=== PATIENT | male | born 1965 | race Caucasian/White ===

== ENCOUNTER 2018-03-08 16:16 | Emergency (ER) | payer BC, OTHER ==
[2018-03-08] MEDS ORDERED: LIDOCAINE 2% 10 ML MDV SUBQ STA (16:52)
--- NOTE | 2018-03-08 16:52 | ED Physician Documentation ---
PD HPI UPPER EXT INJURY - Stated complaint Stated Complaint: RT HAND WOUND - Chief complaint Chief Complaint: Laceration - History obtained from History obtained from: Patient - History of Present Illness Location: Right, Hand Type of injury: Laceration (with knife, lac to index finger base dorsally.) Timing - onset: Today Timing - details: Abrupt onset, Still present Worsened by: Moving, Palpating Associated symptoms: No: Weakness, Numbness Similar symptoms before: Has not had sx before Recently seen: Not recently seen Review of Systems Skin: reports: Laceration (s) Neurologic: denies: Focal weakness, Numbness PD PAST MEDICAL HISTORY - Past Medical History Musculoskeletal: None - Present Medications Home Medications: Ambulatory Orders Medication Instructions Recorded Confirmed Dolutegravir Sodium [Tivicay] 25 mg PO 03/08/18 Emtricitab/Rilpiviri/Tenof Ala 1 each PO 03/08/18 [Odefsey Tablet] Emtricitabine/Tenofov Alafenam 1 each PO 03/08/18 [Descovy 200-25 mg Tablet] Lamotrigine [Lamotrigine ER] 25 mg PO 03/08/18 Venlafaxine [Effexor] 75 mg PO BID 03/08/18 03/08/18 traZODone [Desyrel] 50 mg PO ONCE 03/08/18 03/08/18 - Allergies Allergies/Adverse Reactions: Allergies Allergy/AdvReac Type Severity Reaction Status Date / Time No Known Drug Allergies Allergy Verified 03/08/18 16:22 PD ED PE NORMAL - Vitals Vital signs reviewed: Yes - General General: Alert and oriented X 3, No acute distress, Well developed/nourished - Derm Derm: Normal color, Warm and dry - Extremities Extremities: Other (right index finger with dorsal laceration at proximal MCP area. Opens wiht finger flexion. No deep structures cut and no FB. ) - Neuro Neuro: No motor deficit, No sensory deficit Results - Vitals Vitals: Oxygen O2 Source Room air Procedures - Laceration (location) right index finger Length in cm: 1.5 Wound type: Linear, Into subcut fat, Clean Neurovascular status: Sensory intact, Motor intact, Vascular intact Tendon involvement: Tendon intact Anesthesia: Lidocaine 2% Wound Preparation: Irrigated copiously NS Skin layer closure: Nylon, Running, Size #-0 - enter number (4) Other: Patient tolerated well, No complications, Neurovascular intact, Dressing applied, Tetanus UTD Complexity: Simple PD MEDICAL DECISION MAKING - ED course Complexity details: considered differential (lac is in location that will open readily with use. Discussed and opted with sutures. ), d/w patient - Sepsis Event Vital Signs: Oxygen O2 Source Room air Departure - Departure Disposition: 01 Home, Self Care Clinical Impression: Laceration of right hand Qualifiers: Encounter type: initial encounter Foreign body presence: without foreign body Qualified Code(s): S61.411A - Laceration without foreign body of right hand, initial encounter Condition: Stable Record reviewed to determine appropriate education?: Yes Instructions: ED Laceration Hand Comments: It is okay to wash and shower. Clean off the wound twice a day with soap and water, or peroxide and water. Apply some antibiotic ointment to it to keep it moist. Also to watch for signs of infection such as purulence, redness or increasing pain. Return to your primary care or the ER at the specified time for suture removal. Suture removal 8-10 days. It is okay to be using her hands. Discharge Date/Time: 03/08/18 17:59
[2018-03-08 18:00] VITALS: BP 131/75
== END 2018-03-08 17:59 | disposition home or self-care (01) ==
LOC: ED 16:16
DX: S61.210A Laceration without foreign body of right index finger without damage to nail, initial encounter (principal); W26.0XXA Contact with knife, initial encounter
CPT/HCPCS: 12001; 99283

== ENCOUNTER 2018-12-05 11:20 | Outpatient (CLI) | payer OTHER | END 2018-12-05 11:21 | disposition home or self-care (01) | LOC: LAB 11:20 | PROVIDERS: ATTEND Internal Medicine Gastroenterology | DX: Z53.9 Procedure and treatment not carried out, unspecified reason (principal) ==

== ENCOUNTER 2018-12-05 11:36 | Outpatient (CLI) | payer OTHER ==
[2018-12-05 11:48] LABS: BASOPHILS % (AUTO) 0.8 %; EOSINOPHILS # (AUTO) 0.1 10^3/uL (0.0-0.7); EOSINOPHILS % (AUTO) 2.5 %; HGB - HEMOGLOBIN 14.5 g/dL (14.0-18.0); LYMPHOCYTES # (AUTO) 1.6 10^3/uL (1.5-3.5); LYMPHOCYTES % (AUTO) 35.6 %; MEAN CORPUSCULAR HEMOGLOBIN 31.7 pg (27.0-31.0); MEAN CORPUSCULAR HGB CONC 34.7 g/dL (32.0-36.0); MEAN CORPUSCULAR VOLUME 91.4 fL (80.0-94.0); MEAN PLATELET VOLUME 6.7 fL (7.4-11.4); MONOCYTES # (AUTO) 0.3 10^3/uL (0.0-1.0); MONOCYTES % (AUTO) 5.8 %; NEUTROPHILS # (AUTO) 2.4 10^3/uL (1.5-6.6); NEUTROPHILS % (AUTO) 55.3 %; PLT - PLATELET COUNT 236 10^3/uL (130-450); RED BLOOD COUNT 4.59 10^6/uL (4.70-6.10); RED CELL DISTRIBUTION WIDTH 13.3 % (12.0-15.0); WHITE BLOOD COUNT 4.4 x10^3/uL (4.8-10.8)
[2018-12-05 11:57] LABS: ALBUMIN/GLOBULIN RATIO 1.3 (1.0-2.2); BILIRUBIN,TOTAL 1.1 mg/dL (0.2-1.0); CREATININE 0.9 mg/dL (0.6-1.2); TOTAL PROTEIN 7.1 g/dL (6.7-8.2)
== END 2018-12-05 23:59 | disposition home or self-care (01) ==
LOC: LAB.R 11:36
PROVIDERS: ATTEND Internal Medicine Gastroenterology
DX: K62.5 Hemorrhage of anus and rectum (principal); B20 Human immunodeficiency virus [HIV] disease
CPT/HCPCS: 36415; 80053; 85025

== ENCOUNTER 2018-12-17 09:59 | Day surgery (SDC) | payer OTHER ==
[2018-12-17] MEDS ORDERED: LACTATED RINGERS 1,000 ML IV ONE (10:25)
[2018-12-17] MEDS ORDERED: MIDAZOLAM 2 MG/2 ML VIAL IVP ONE (12:29)
[2018-12-17] MEDS ORDERED: fentaNYL 250 MCG/5 ML VIAL IVP ONE (12:29)
[2018-12-17 15:48] VITALS: BP 113/57
== END 2018-12-17 10:00 | disposition home or self-care (01) ==
LOC: SDS 09:59
PROVIDERS: ATTEND Internal Medicine Gastroenterology
PROC: 0DJD8ZZ Inspection of Lower Intestinal Tract, Via Natural or Artificial Opening Endoscopic (ICD-10-PCS; principal; 2018-12-17 11:45)
DX: K57.31 Diverticulosis of large intestine without perforation or abscess with bleeding (principal); K64.8 Other hemorrhoids; K42.9 Umbilical hernia without obstruction or gangrene; B20 Human immunodeficiency virus [HIV] disease; E66.9 Obesity, unspecified; Z68.34 Body mass index [BMI] 34.0-34.9, adult; E78.5 Hyperlipidemia, unspecified; F34.1 Dysthymic disorder
CPT/HCPCS: 45378; J3010; J7120

== ENCOUNTER 2020-07-03 10:36 | Outpatient (CLI) | payer OTHER | END 2020-07-03 10:37 | disposition home or self-care (01) | LOC: COV 10:36 | PROVIDERS: ATTEND Family Medicine | DX: Z20.828 Contact with and (suspected) exposure to other viral communicable diseases (principal) ==

== ENCOUNTER 2020-10-04 13:06 | Outpatient (CLI) | payer OTHER | END 2020-10-04 13:07 | disposition home or self-care (01) | LOC: COV 13:06 | PROVIDERS: ATTEND Family Medicine | DX: Z20.822 Contact with and (suspected) exposure to COVID-19 (principal) ==

== ENCOUNTER 2020-12-15 10:08 | Outpatient (CLI) | payer OTHER ==
[2020-12-15 10:55] VITALS: BP 137/80
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
== END 2020-12-15 10:09 | disposition home or self-care (01) ==
LOC: SC 10:08
PROVIDERS: ATTEND Nurse Practitioner Family
DX: G47.10 Hypersomnia, unspecified (principal); R51.9 Headache, unspecified; G47.8 Other sleep disorders; R41.89 Other symptoms and signs involving cognitive functions and awareness; R06.83 Snoring; Z72.0 Tobacco use; E66.9 Obesity, unspecified; Z68.34 Body mass index [BMI] 34.0-34.9, adult
CPT/HCPCS: 99203; 99212

== ENCOUNTER 2020-12-22 08:42 | Outpatient (CLI) | payer OTHER | END 2020-12-22 08:43 | disposition home or self-care (01) | LOC: SC 08:42 | PROVIDERS: ATTEND Nurse Practitioner Family | DX: G47.33 Obstructive sleep apnea (adult) (pediatric) (principal); R09.02 Hypoxemia; E66.3 Overweight; Z68.34 Body mass index [BMI] 34.0-34.9, adult | CPT/HCPCS: 95806 ==

== ENCOUNTER 2021-01-05 09:01 | Outpatient (CLI) | payer OTHER ==
--- NOTE | 2021-01-05 09:29 | SLEEP CARE CONSULTATION ---
Information from patient questionnaire entered by Eugenie Bolden. I have reviewed and concur with the information entered by Eugenie Bolden. This document represents the service I personally performed and the decisions made by , Ivanna Chi ARNP. History of Present Illness Service Date and Time: 01/05/2021 09 Initial [place] Sleepiness Scale score: 14 (in 2020) Current [place] Sleepiness Scale score: 17 Additional HPI information: DMITRIY CASAREZ returns for follow up and results of the recently performed home sleep study. I explained the pathophysiology behind obstructive sleep apnea. We then spent quite a bit of time discussing different treatment options. For mild obstructive sleep apnea, surgery and oral appliance are alternatives to nasal CPAP therapy but in moderate or severe cases, nasal CPAP is the most effective and reliable treatment. Because apnea is primarily in supine position, then positional management therapy could be effective. Discussed positioning on side with pillows to prevent supine sleep. I reviewed the impact of weight changes on sleep apnea and strongly recommended losing weight. After some discussion, the patient opted to go with the nasal CPAP therapy. Nasal autoCPAP set at 4-15 cmH20 will be ordered with rationale explained. A manual titration study will be ordered if unable to find optimal pressure with office adjustments. I explained how CPAP machine works with sample devices [employer] A/S Dreamstation and ResCol[employer]ri IO [id number] and what to expect when using the machine. Using CPAP every night in order to get used to it was emphasized. Patient advised to put CPAP mask on before getting into bed so as not to fall asleep without CPAP. To assist acclimation to CPAP use, it could also be used for a short time during day while reading or watching TV. The patient was instructed to call the CPAP supplier to discuss any mechanical problem that may occur. If the mask given is uncomfortable or is difficult to keep on through the night even with adjustment, contact the CPAP supplier as many will replace with another mask style if notified before 30 days. If snoring or perceives is not getting enough air or too much air from the machine, notify this office. A[facility] patient education PAP tips reviewed and given to patient. Patient counseled not drink alcohol less than 4 hours before bedtime as it can increase snoring and apnea. Patient was cautioned about risks of drowsy driving until sleepiness symptoms resolve. Sleep Study - Results Type of Sleep Study: Home sleep study Prior sleep studies: Yes Polysomnography/Home Sleep Study results: Physician Impression: The quality of the study is good. The length of the study is adequate (> 240 minutes). Please also see the tabulated and graphic data. 1. Obstructive Sleep Apnea-Hypopnea (ICD-10 G47.33), mild, with an AHI of 13.5 /hr and ginger SaO2 of 84%. During the study, the patient had 56 apneas (56 obstructive, 0 central, 0 mixed) and 44 hypopneas. The longest episode lasted 98.0 seconds. The respiratory events occurred more frequently during supine sleep (supine AHI was 57.3 and non-supine, 11.88). 2. Hypoxemia (ICD-10 R09.02), mild, with the lowest oxygen saturation of 84 % and 32.3 minutes with SaO2 under 90%. Baseline oxygen saturation was normal (Average oxygen saturation was 92%) Allergies and Home Medications Home medication list reviewed: Yes (no new meds) Review of Systems Review of systems same as previous: Yes (no changes) Physical Exam Heart Rate: 77 O2 Saturation: 97 Height: 5 ft 11 in Weight: 253 lb Body Mass Index: 35.2 BMI Classification: Obese Impression and Plan 1. Obstructive Sleep Apnea-Hypopnea Syndrome, mild, with lowest oxygen saturation of 84%. Obviously this is the cause of the patients symptoms of unrefreshed sleep, and excessive daytime sleepiness. Positive pressure therapy could benefit anxiety, depression and mood disorder (PTSD). He is in severe apnea range supine and mild non-supine. As mentioned above, the patient will be started on nasal autoCPAP therapy with pressure set at 4-15 cmH2O. A manual titration study will be completed if unable to find optimal treatment pressure with office adjustments. Compliance guidelines also reviewed. A copy of compliance guidelines will be given for reference at check out. Because the apnea is more severe supine, I instructed to avoid sleeping supine using pillow positioning until able to start CPAP use. 2. Hypoxemia, mild, with the lowest oxygen saturation of 84 % and 32.3 minutes with SaO2 under 90%. Baseline oxygen saturation was normal with an average oxygen saturation of 92%. * Nasal auto CPAP therapy, pressure at 4-15 cm H2O. * Attempt to lose weight. * Avoid alcohol consumption near bedtime. * Avoid supine sleep until using CPAP. * The patient is again cautioned about driving until sleepiness completely resolves. * Return one month after CPAP obtained. I will assess response to therapy and compliance at that time. Counseling Topics: Sleeping position, Weight loss health impact Visit Type: In Office Time Spent with Patient (minutes): 20 Provider Statement: I spent 100% of the Face to Face Visit with the patient with greater than 50% spent counseling the patient and coordination of care.
== END 2021-01-05 09:02 | disposition home or self-care (01) ==
LOC: SC 09:01
PROVIDERS: ATTEND Nurse Practitioner Family
DX: G47.33 Obstructive sleep apnea (adult) (pediatric) (principal); E66.9 Obesity, unspecified; Z68.35 Body mass index [BMI] 35.0-35.9, adult
CPT/HCPCS: 99212; 99213

== ENCOUNTER 2021-05-04 08:16 | Outpatient (CLI) | payer OTHER ==
--- NOTE | 2021-05-04 08:53 | SLEEP CARE CONSULTATION ---
Information from patient questionnaire entered by Eugenie Bolden. I have reviewed and concur with the information entered by Eugenie Bolden. This document represents the service I personally performed and the decisions made by , Ivanna Chi ARNP. History of Present Illness Service Date and Time: 05/04/2021 0816 Previous diagnosis: Mild, Obstructive Sleep Apnea-Hypopnea Syndrome AHI: 13.5 (in 2020) Reason for follow up: first compliance Equipment type: CPAP Equipment obtained from: [employer] (got initial supplies) Mask style: Full face Backup mask available: No Last cushion change: yesterday Prior sleep studies: Yes Year and Where: 2020 - [facility] Type of Sleep Study: Home sleep study HPI additional information: DMITRIY CASAREZ was diagnosed to have mild, AHI 13.5, obstructive sleep apnea- hypopnea syndrome and returned today for CPAP therapy first compliance follow- up. CPAP Compliance Data - Data Reviewed with Patient Average duration of nightly device use: 7 hr 17 min Compliance rate %: 90 (initial 30 days)(83% for 90 days) Current pressure setting (cmH2O): 4-15 (median 6.2, avg 9.4, max 10.6) Average residual AHI: 3.4 Central apnea: 2.0 Obstructive apnea: 0.9 Subjective Missed days of use due to: reports: mask issues Patient concerns: reports: air blowing in eyes, mask leak noise, condensation in mask/hose (couple times). denies: aerophagia, mask discomfort, nasal congestion, dry mouth, nose, throat, epistaxis, other Observed to snore while using device: No Current pressure setting perceived as: comfortable On therapy, patient: reports: sleeping better, awakening more refreshed, being more awake and alert during the day, more rested overall. denies: drowsiness while driving Initial [place] Sleepiness Scale score: 14 (in 2020) Current [place] Sleepiness Scale score: 9 Allergies and Home Medications Home medication list reviewed: Yes (no changes) Review of Systems Review of systems same as previous: Yes (no changes) Physical Exam Heart Rate: 86 O2 Saturation: 97 Height: 5 ft 11 in Weight: 254 lb Body Mass Index: 35.4 BMI Classification: Obese Impression and Plan 1. Obstructive Sleep Apnea-Hypopnea Syndrome, mild, with good treatment compliance and good apnea control. On CPAP therapy, the patient has better sleep quality and is more rested overall. The patients pressure will be changed to autoCPAP 8-10 cmH20 to reflect the pressures used. Patient advised to contact me if pressure change is uncomfortable so that it can be adjusted. Goals for apnea control discussed. Patient started with a nasal cushion mask but then got a full face mask because he was sleeping with his mouth open and getting a dry mouth. He likes the full face mask better but when he turns on his sides he gets air leaking into his eyes and mask leak noises. I advised patient to try the ResMed F 30i mask to see if this is more comfortable and has less leaking when he is on his side. Patient voiced understanding. Mask leaks can be reduced by washing mask daily and changing mask cushions more frequently to improve mask seal and comfort. Additionally, mask leaks predominately from when patient sleeps on their side can be reduced by using a CPAP pillow. A CPAP pillow sample was shown. This and other styes can be purchased online. Patient's apnea severity and rationale for treatment to reduce apnea, improve sleep quality and reduce cardiovascular and cerebrovascular events was reviewed. I also reviewed the benefit of consistent device use of CPAP for depression, anxiety and mood disorder. 2. Obesity, unspecified. Patient currently at a BMI of 35.4. Obesity increases the risk of apnea, CPAP pressure requirements and overall health risks especially cardiovascular and diabetes. Thus patient is advised to lose weight. The patient would like to reduce to 50 pounds. The patient's CPAP pressure range should accommodate some weight loss. Symptoms to report for additional pressure adjustment discussed. * Try Resmed F30i full face mask and CPAP pillow to reduce air leaks * Change auto CPAP pressure to 8-10 cmH2O * Notify me if snoring with mask or feeling that the pressure is too much or too little * Attempt to lose weight * Call this office if any problems using CPAP * Return for follow up in 1-2 months, or sooner if concerns arise * Counseling Topics: Spare mask, Weight loss health impact Visit Type: In Office Time Spent with Patient (minutes): 26 Provider Statement: I spent 100% of the Face to Face Visit with the patient with greater than 50% spent counseling the patient and coordination of care.
== END 2021-05-04 08:17 | disposition home or self-care (01) ==
LOC: SC 08:16
PROVIDERS: ATTEND Nurse Practitioner Family
DX: G47.33 Obstructive sleep apnea (adult) (pediatric) (principal); E66.9 Obesity, unspecified; Z68.35 Body mass index [BMI] 35.0-35.9, adult
CPT/HCPCS: 99212; 99213

== ENCOUNTER 2021-08-31 09:09 | Outpatient (CLI) | payer OTHER | END 2021-08-31 09:10 | disposition home or self-care (01) | LOC: LAB.S 09:09 | PROVIDERS: ATTEND Internal Medicine | DX: Z21 Asymptomatic human immunodeficiency virus [HIV] infection status (principal) | CPT/HCPCS: 81599 ==

== ENCOUNTER 2021-11-27 12:59 | Outpatient (CLI) | payer MEDICAID ==
[2021-11-27 19:44] LABS: BASOPHILS % (AUTO) 0.7 %; EOSINOPHILS # (AUTO) 0.2 10^3/uL (0.0-0.7); EOSINOPHILS % (AUTO) 2.6 %; HCT - HEMATOCRIT 43.4 % (42.0-52.0); HGB - HEMOGLOBIN 14.7 g/dL (14.0-18.0); LYMPHOCYTES # (AUTO) 1.6 10^3/uL (1.5-3.5); LYMPHOCYTES % (AUTO) 28.8 %; MEAN CORPUSCULAR HEMOGLOBIN 31.7 pg (27.0-31.0); MEAN CORPUSCULAR HGB CONC 33.9 g/dL (32.0-36.0); MEAN CORPUSCULAR VOLUME 93.7 fL (80.0-94.0); MEAN PLATELET VOLUME 9.5 fL (7.4-11.4); MONOCYTES # (AUTO) 0.4 10^3/uL (0.0-1.0); MONOCYTES % (AUTO) 7.2 %; NEUTROPHILS # (AUTO) 3.5 10^3/uL (1.5-6.6); NEUTROPHILS % (AUTO) 60.5 %; PLT - PLATELET COUNT 267 10^3/uL (130-450); RED BLOOD COUNT 4.63 10^6/uL (4.70-6.10); RED CELL DISTRIBUTION WIDTH 13.1 % (12.0-15.0); WHITE BLOOD COUNT 5.7 x10^3/uL (4.8-10.8)
[2021-11-27 20:00] LABS: ALBUMIN 3.9 g/dL (3.2-5.5); ALBUMIN/GLOBULIN RATIO 1.6 (1.0-2.2); BILIRUBIN,TOTAL 0.9 mg/dL (0.2-1.0); CALCIUM 9.3 mg/dL (8.5-10.3); POTASSIUM 4.3 mmol/L (3.5-5.0); TOTAL PROTEIN 6.4 g/dL (6.7-8.2)
== END 2021-11-27 13:00 | disposition home or self-care (01) ==
LOC: LAB.S 12:59
DX: E29.1 Testicular hypofunction (principal)
CPT/HCPCS: 36415; 80053; 81599; 82670; 84153; 84402; 84403; 85025

== ENCOUNTER 2022-01-02 09:44 | Emergency (ER) | payer MEDICAID ==
--- NOTE | 2022-01-02 11:18 | ED Physician Documentation ---
PD HPI OPHTHO - Stated complaint Stated Complaint: ACID IN EYES,FACE - Chief complaint Chief Complaint: Heent - History obtained from History obtained from: Patient - Additional information Additional information: Patient comes emergency department for chief complaint of caustic exposure to the eyes yesterday around 1700. He states he was using an alkali solution to degrease something when the solution splashed in his eyes. He was not wearing protective glasses. He immediately ran water in his eyes, but does admit to rubbing his eyes a little. He also then got went home and got in the shower and let water run through his eyes thereto. He states that he is just had burning and his vision seems a bit blurry. His eyelids are also sore and a little swollen. No other injuries or complaints at this time. He does not wear any corrective lenses in his eyes, though he does wear glasses for far vision. Review of Systems Ten Systems: 10 systems reviewed and negative Constitutional: reports: Reviewed and negative Eyes: reports: Decreased vision (Blurry), Discharge (Mucous), Irritation Ears: reports: Reviewed and negative Nose: reports: Reviewed and negative Throat: reports: Reviewed and negative Cardiac: reports: Reviewed and negative Respiratory: reports: Reviewed and negative GI: reports: Reviewed and negative : reports: Reviewed and negative Skin: reports: Reviewed and negative Musculoskeletal: reports: Reviewed and negative Neurologic: reports: Reviewed and negative Psychiatric: reports: Reviewed and negative Endocrine: reports: Reviewed and negative Immunocompromised: reports: Reviewed and negative PD PAST MEDICAL HISTORY - Past Medical History Past Medical History: Yes Musculoskeletal: None - Past Surgical History Past Surgical History: Yes General: Cholecystectomy - Present Medications Home Medications: Ambulatory Orders Medication Instructions Recorded Confirmed Dolutegravir Sodium [Tivicay] 25 mg PO DAILY 03/08/18 12/16/18 Emtricitab/Rilpiviri/Tenof Ala 1 each PO 03/08/18 [Odefsey Tablet] Emtricitabine/Tenofov Alafenam 1 each PO 03/08/18 [Descovy 200-25 mg Tablet] Lamotrigine [Lamotrigine ER] 25 mg PO DAILY 03/08/18 12/16/18 Venlafaxine [Effexor] 75 mg PO BID 03/08/18 12/16/18 traZODone [Desyrel] 100 mg PO DAILY 12/17/18 12/17/18 Gentamicin 0.3% Ophth Drops 1 drops OPTH BID 7 Days #5 ml 01/02/22 [Garamycin] - Allergies Allergies/Adverse Reactions: Allergies Allergy/AdvReac Type Severity Reaction Status Date / Time No Known Drug Allergies Allergy Verified 01/02/22 09:51 - Social History Does the pt smoke?: No Smoking Status: Never smoker Does the pt drink ETOH?: No Does the pt have substance abuse?: No - Immunizations Immunizations are current?: Yes Immunizations: TDAP current <10years PD ED PE NORMAL - Vitals Vital signs reviewed: Yes - General General: Alert and oriented X 3, No acute distress, Well developed/nourished - HEENT HEENT: Atraumatic, PERRL, EOMI, Moist mucous membranes, Other (Moderate conjunctival injection bilaterally. 5 mm diameter shallow abrasion in the 7 o'clock position on the right eye. No punctate keratitis. No ulcer. No streaming. No foreign body.) - Neck Neck: Supple, no meningeal sign - Respiratory Respiratory: No respiratory distress - Derm Derm: Normal color, Warm and dry, Other (Mild erythema and irritation with tiny areas of desquamation over bilateral upper and lower eyelids.) - Extremities Extremities: No deformity - Neuro Neuro: Alert and oriented X 3 - Psych Psych: Normal mood, Normal affect Results - Vitals Vitals: Vital Signs - 24 hr 01/02/22 01/02/22 09:48 11:29 Temperature 36.8 C Heart Rate 69 59 L Respiratory 16 14 Rate Blood Pressure 132/73 H 114/64 O2 Saturation 97 99 Oxygen O2 Source Room air PD MEDICAL DECISION MAKING - ED course Complexity details: considered differential, d/w patient ED course: Visual acuity was done and found to be 20/70 bilaterally and 20/40 together. This was without corrective lenses. The patient did not have any ulceration and had a Superficial scleral abrasion, but no other abnormalities on exam, other than some injection. I discussed with the patient that at this point, it has been over 18 hours since his exposure to the alkali and there is nothing further to be done at this point. I will give the patient ophthalmology for follow-up and I will prescribe him antibiotic drops. He may use ibuprofen and/or Tylenol as needed for discomfort. We have discussed that the inflammation will have to run its course, but that he may follow-up with ophthalmology if he has ongoing issues with his vision that are worse than his baseline. Departure - Departure Disposition: 01 Home, Self Care Clinical Impression: Chemical conjunctivitis of both eyes Condition: Stable Instructions: ED Chemical Conjunctivitis Follow-Up: [facility] [Provider Group] Prescriptions: Gentamicin 0.3% Ophth Drops [Garamycin] 1 drops OPTH BID 7 Days #5 ml Comments: You have had an alkali exposure to your eyes, and this can cause quite a bit of irritation. Generally, the irritation will subside over some days. You have already rinsed the offending chemicals out and at this point in time, your eyes just have to heal. You do have an abrasion beneath your iris on the right, and this can harbor bacteria while it is healing and cause an infection in your eye. As such, a prescription for antibiotic drops has been sent to the [facility] in [place]. If you have abnormally blurry vision for more than the next few days, you should call the [facility] office to follow-up and have your eyes rechecked. You may take ibuprofen and Tylenol as needed for discomfort Discharge Date/Time: 01/02/22 11:29
[2022-01-02 11:30] VITALS: BP 114/64
== END 2022-01-02 11:29 | disposition home or self-care (01) ==
LOC: ED 09:44
DX: T54.3X1A Toxic effect of corrosive alkalis and alkali-like substances, accidental (unintentional), initial encounter (principal); H10.213 Acute toxic conjunctivitis, bilateral; Y92.89 Other specified places as the place of occurrence of the external cause
CPT/HCPCS: 99282; 99284